=== PATIENT | female | born 1960 | race Caucasian/White ===

== ENCOUNTER 2019-11-04 18:07 | Emergency (ER) | payer MEDICARE, OTHER ==
[~2019-11-04] VITALS: Ht 129.5 cm; Wt 125.0 kg
[2019-11-04] MEDS ORDERED: INSNOV SQ (19:19)
[2019-11-04] MEDS ORDERED: ONDA-104 PO (19:19)
[2019-11-04] MEDS ORDERED: ALBU8HFA IH (19:19)
[2019-11-04] MEDS ORDERED: CARV3 PO (19:19)
[2019-11-04] MEDS ORDERED: PANT-31 PO (19:19)
[2019-11-04] MEDS ORDERED: HYDR-4455 PO (19:19)
[2019-11-04] MEDS ORDERED: INSLAN SQ (19:19)
[2019-11-04] MEDS ORDERED: BACITRACIN 0.9 GM PACKET OINTMENT TP ONE (20:00)
[2019-11-04 21:11] VITALS: BP 169/70
== END 2019-11-04 21:30 | disposition home or self-care (01) ==
LOC: EMS 18:16
DX: Z48.00 Encounter for change or removal of nonsurgical wound dressing (principal); E11.22 Type 2 diabetes mellitus with diabetic chronic kidney disease; N18.6 End stage renal disease; J45.909 Unspecified asthma, uncomplicated; I50.9 Heart failure, unspecified; Z99.2 Dependence on renal dialysis; Z88.5 Allergy status to narcotic agent; Z88.1 Allergy status to other antibiotic agents; Z79.899 Other long term (current) drug therapy